=== PATIENT | female | born 1995 ===

== ENCOUNTER 2022-07-09 05:37 | Day surgery (SDC) | payer OTHER | END 2022-07-09 09:50 | disposition home or self-care (01) | LOC: AMB-ENDOS 05:37 | PROVIDERS: ATTEND Surgery | DX: K29.70 Gastritis, unspecified, without bleeding (principal); R10.13 Epigastric pain; E66.09 Other obesity due to excess calories; K44.9 Diaphragmatic hernia without obstruction or gangrene; Z20.822 Contact with and (suspected) exposure to COVID-19 ==